=== PATIENT | female | born 1955 | race Caucasian/White ===

== ENCOUNTER 2017-06-07 07:07 | Day surgery (SDC) | payer OTHER ==
[2017-06-01 13:32] VITALS: BMI 20.2
[2017-06-07 08:15] VITALS: BP 88/45; PULSE 122
[2017-06-07] MEDS ORDERED: TOBRA 0.3%/DEXAMETH 0.1% OPHTHALMIC SUSP 2.5 ML BTL ONE (08:19)
[2017-06-07] MEDS ORDERED: POVIDONE-IODINE 5% OPHTHALMIC PREP 30 ML SOLUTION ONE (08:19)
[2017-06-07] MEDS ORDERED: TETRACAINE 0.5% OPHTH SOLN 2 ML BOTTLE ONE (08:19)
[2017-06-07] MEDS ORDERED: LIDOCAINE HCL/PF 1% SDV 5ML VIAL ONE (08:19)
== END 2017-06-07 09:32 | disposition home or self-care (01) ==
LOC: JASU-SURG 07:07
PROVIDERS: ATTEND Ophthalmology
PROC: 08Q0XZZ Repair Right Eye, External Approach (ICD-10-PCS; principal; 2017-06-07)
DX: Z53.8 Procedure and treatment not carried out for other reasons (principal)

== ENCOUNTER 2017-06-28 07:01 | Day surgery (SDC) | payer OTHER ==
[2017-06-25 12:11] VITALS: BMI 17.7
[2017-06-28] MEDS ORDERED: TOBRA 0.3%/DEXAMETH 0.1% OPHTHALMIC SUSP 2.5 ML BTL ONE (07:19)
[2017-06-28] MEDS ORDERED: BUPIVACAINE HCL/PF 0.75% 10 ML VIAL ONE (07:19)
[2017-06-28] MEDS ORDERED: LIDOCAINE HCL/PF 1% SDV 5ML VIAL ONE (07:19)
[2017-06-28] MEDS ORDERED: ACETYLCHOLINE 1:100 INTRA-OCUL 20 MG/2 ML KIT ONE (07:20)
[2017-06-28] MEDS ORDERED: TETRACAINE 0.5% OPHTH SOLN 2 ML BOTTLE ONE (07:20)
[2017-06-28 07:37] VITALS: TEMP 98.2
[2017-06-28] MEDS ORDERED: PHENYLEPHRINE/KETOROLAC 4 ML VIAL IO ONE (07:45)
[2017-06-28] MEDS: MOXIFLOXACIN HCL 0.5% OPHTHALMIC 3 ML BOTTLE ONE ×2 (07:45→08:00)
[2017-06-28] MEDS: CYCLOPENTOLATE HCL 1% OPHTH SOLN 2 ML BOTTLE ONE ×2 (07:45→08:00)
[2017-06-28] MEDS: FLURBIPROFEN 0.03% OPHTH SOLN 2.5 ML BOTTLE ONE ×2 (07:45→08:00)
[2017-06-28] MEDS: PHENYLEPHRINE 2.5% OPHTH SOLN 15 ML BOTTLE ONE ×2 (07:45→08:00)
[2017-06-28] MEDS ORDERED: TROPICAMIDE 1% OPHTH SOLN 15 ML BOTTLE ONE (07:49)
[2017-06-28] MEDS ORDERED: TETRACAINE 0.5% OPHTH SOLN 2 ML BOTTLE TP ONE (08:55)
[2017-06-28] MEDS ORDERED: POVIDONE-IODINE 5% OPHTHALMIC PREP 30 ML SOLUTION OS ONE (08:56)
[2017-06-28] MEDS ORDERED: CHONDROITIN SU A/HYALUR SOD 1 KIT IO ONE (08:58)
[2017-06-28 09:44] VITALS: PULSE 110
[2017-06-28 12:40] VITALS: BP 101/50
--- NOTE | 2017-06-28 20:12 | OP ---
DATE OF OPERATION: 06/28/2017 SPECIALIST: Cleo Vazquez MD PREOPERATIVE DIAGNOSIS: Cataract, left eye. POSTOPERATIVE DIAGNOSIS: Cataract, left eye. PROCEDURE: Phacoemulsification of cataract, left eye, with in-the-bag placement of SN60WF intraocular lens. ANESTHESIA: Local. DESCRIPTION OF PROCEDURE: Patient was brought to the operating room, and the left eye was prepped and draped in the usual sterile fashion for ophthalmic surgery after placing tetracaine eye drops. The microscope was swung into position, and a 2.75 keratome was used to enter the anterior chamber at approximately 2 o'clock position with an accessory port made at approximately 5 o'clock position after filling the anterior chamber with 0.5 mL of preservative-free lidocaine and viscoelastic. Utrata forceps and cystotome were used to make a continuous circular capsulorrhexis. BSS was used to perform hydrodissection and hydrodelineation of the lens nucleus which was then rotated freely. Phacoemulsification was carried out in a eudard-bym-yxipmll technique, and the capsular bag was found to be intact and which was injected with an SN60WF 21.0 diopter IOL. It rotated into position using the Sinskey hook. The IA was used to remove viscoelastic from the capsular bag and anterior chamber, and BSS was used to hydrate the lips of the corneal wound which was then found to be watertight. A contact lens soaked in TobraDex solution for approximately 10 minutes was then draped in the cornea. The eye was patched and shielded. The patient was transferred to recovery room in a stable condition, having tolerated the procedure well. Juliane [id number]
== END 2017-06-28 11:00 | disposition home or self-care (01) ==
LOC: JASU-SURG 07:01
PROVIDERS: ATTEND Ophthalmology
PROC: 08RK3JZ Replacement of Left Lens with Synthetic Substitute, Percutaneous Approach (ICD-10-PCS; principal; 2017-06-28 09:00)
DX: H26.9 Unspecified cataract (principal)

== ENCOUNTER 2017-07-19 07:26 | Day surgery (SDC) | payer OTHER ==
[2017-07-16 11:19] VITALS: BMI 17.7
[~2017-07-19 07:26] MED LIST: BSS (NA/CA/MG/K) BALANCED SALT SOLUTION OPHTH SOLN 15 ML BOTTLE OD ONE; CHONDROITIN SU A/HYALUR SOD 1 KIT IO ONE; LIDOCAINE HCL 1% PRESERVATIVE FREE - 30ML VIAL IO ONE; PHENYLEPHRINE/KETOROLAC 4 ML VIAL IO ONE; POVIDONE-IODINE 5% OPHTHALMIC PREP 30 ML SOLUTION OD ONE; TETRACAINE 0.5% OPHTH SOLN 2 ML BOTTLE OD ONE; TOBRA 0.3%/DEXAMETH 0.1% OPHTHALMIC SUSP 2.5 ML BTL OD ONE
[2017-07-19] MEDS ORDERED: FLURBIPROFEN 0.03% OPHTH SOLN 2.5 ML BOTTLE ONE (07:41)
[2017-07-19] MEDS ORDERED: MOXIFLOXACIN HCL 0.5% OPHTHALMIC 3 ML BOTTLE ONE (07:41)
[2017-07-19] MEDS ORDERED: TROPICAMIDE 1% OPHTH SOLN 15 ML BOTTLE ONE (07:42)
[2017-07-19] MEDS ORDERED: CYCLOPENTOLATE HCL 1% OPHTH SOLN 2 ML BOTTLE ONE (07:42)
[2017-07-19] MEDS ORDERED: PHENYLEPHRINE 2.5% OPHTH SOLN 15 ML BOTTLE ONE (07:42)
[2017-07-19 08:01] VITALS: TEMP 98.5
[2017-07-19] MEDS ORDERED: CYCLOPENTOLATE HCL 1% OPHTH SOLN 2 ML BOTTLE OD ONE ×3 (08:15→09:10)
[2017-07-19] MEDS ORDERED: PHENYLEPHRINE 2.5% OPHTH SOLN 15 ML BOTTLE OD ONE ×3 (08:15→09:10)
[2017-07-19] MEDS ORDERED: TROPICAMIDE 1% OPHTH SOLN 15 ML BOTTLE OD ONE ×3 (08:15→09:10)
[2017-07-19] MEDS ORDERED: FLURBIPROFEN 0.03% OPHTH SOLN 2.5 ML BOTTLE OD ONE ×3 (08:15→09:10)
[2017-07-19] MEDS ORDERED: PHENYLEPHRINE/KETOROLAC 4 ML VIAL IO ONE ×3 (09:30→10:11)
[2017-07-19] MEDS ORDERED: TETRACAINE 0.5% OPHTH SOLN 2 ML BOTTLE OD ONE (09:52)
[2017-07-19] MEDS ORDERED: MIDAZOLAM HCL 2 MG/2 ML SINGLE DOSE VIAL ONE (09:54)
[2017-07-19] MEDS ORDERED: POVIDONE-IODINE 5% OPHTHALMIC PREP 30 ML SOLUTION OD ONE (09:56)
[2017-07-19] MEDS ORDERED: LIDOCAINE HCL 1% PRESERVATIVE FREE - 30ML VIAL IO ONE (10:05)
[2017-07-19] MEDS ORDERED: BSS (NA/CA/MG/K) BALANCED SALT SOLUTION OPHTH SOLN 15 ML BOTTLE OD ONE (10:05)
[2017-07-19] MEDS ORDERED: CHONDROITIN SU A/HYALUR SOD 1 KIT IO ONE (10:05)
[2017-07-19] MEDS ORDERED: TOBRA 0.3%/DEXAMETH 0.1% OPHTHALMIC SUSP 2.5 ML BTL OD ONE (10:26)
[2017-07-19 11:21] VITALS: BP 93/63; PULSE 98
--- NOTE | 2017-07-19 20:22 | OP ---
DATE OF OPERATION: 07/19/2017 SURGEON: Elias Angeles M.D. PREOPERATIVE DIAGNOSIS: Cataract, right eye. POSTOPERATIVE DIAGNOSIS: Cataract, right eye. PROCEDURE: Patient phacoemulsification of cataract right eye with in the bag placement of SN60WF 21.5 diopter intraocular lens with use of . ANESTHESIA: Local. PROCEDURE: The patient was brought to the operating room, and the right eye was prepped and draped in the usual sterile fashion for ophthalmic surgery after placing the tetracaine eye drops. The microscope was swung into position and a 2.75 keratome was used to enter the anterior chamber at approximately 10 o'clock position, with an accessory port made at 2 o'clock position after filling the anterior chamber with 0.5 mL of preservative-free lidocaine and viscoelastic. Cystotome and Utrata forceps were used to make a continuous circular capsulorrhexis. Phacoemulsification was carried out in a hpruxo-mdc-mzljwig technique after performing hydrodissection and hydrodelineation of the lens nucleus, which was then rotated freely. The IA was used to remove residual cortical material from the capsular bag. The capsular bag was found to be intact and injected into it was a SN60WF 21.5 diopter IOL. It rotated into position using the Sinskey hook. IA was used to remove residual viscoelastic from the capsular bag and anterior chamber. The corneal lip wounds were hydrated with BSS and was found to be watertight. A contact lens soaked in Tobradex solution for approximately 10 minutes was then draped in the cornea. The eye was patched and shielded and patient was transferred to the recovery room in a stable condition having tolerated the procedure well. ELIAS ANGELES M.D. /[id number]
== END 2017-07-19 11:30 | disposition home or self-care (01) ==
LOC: JASU-SURG 07:26
PROVIDERS: ATTEND Ophthalmology
PROC: 08RJ3JZ Replacement of Right Lens with Synthetic Substitute, Percutaneous Approach (ICD-10-PCS; principal; 2017-07-19 09:30)
DX: H26.9 Unspecified cataract (principal)
CPT/HCPCS: C9447